=== PATIENT | female | born 1960 | race Caucasian/White ===

== ENCOUNTER 2024-12-06 11:58 | Outpatient (REF) | payer OTHER, SELFPAY ==
[2024-12-06 14:53] LABS: Hematocrit 43.0 % (37.0-47.0); Hemoglobin 14.4 g/dl (12.0-16.0); Mean Corpuscular HGB Conc 33.5 g/dl (31.0-35.0); Mean Corpuscular Hemoglobin 31.0 pg (27.0-33.0); Mean Corpuscular Volume 92.5 fL (80.0-98.0); NRBC Abs Auto 0.000 X10*3/uL (0.0-0.012); NRBC Pct Auto 0.0 /100WBC (0.0-0.2); Platelet Count 260 X10*3/uL (160-400); Red Blood Count 4.65 X10*6/uL (4.20-5.50); White Blood Count 6.6 X10*3/uL (4.8-10.8)
[2024-12-06 15:10] LABS: Hemoglobin A1C 130.1153 umol/L; Total Hemoglobin (HGBA1C) 3746.4492 umol/L
[2024-12-06 15:13] LABS: Alanine Aminotransferase 18 U/L (0-31); Albumin Level 4.2 g/dL (3.5-5.0); Alkaline Phosphatase 57 U/L (39-117); Anion Gap 10 (12-20); Aspartate Amino Transferase 26 U/L (5-31); Blood Urea Nitrogen 11 mg/dL (9-16); Calcium 9.2 mg/dL (8.4-10.2); Carbon Dioxide 30 mmol/L (22-29); Chloride 107 mmol/L (96-108); Cholesterol 163 mg/dL (<200); Estimated Glomerular Filt Rate > 60; HDL Cholesterol 39 mg/dL (>40); Potassium 4.0 mmol/L (3.3-5.1); Sodium 143 mmol/L (135-145); Total Protein 7.0 g/dL (6.5-8.0); Triglycerides 131 mg/dL (<150)
[2024-12-06 15:42] LABS: Folate 9.8 ng/mL (> or = 4.0); Vitamin B12 1270 pg/mL (200-900)
== END 2024-12-06 11:59 | disposition home or self-care (01) ==
LOC: HO.WFDLDS 11:58
PROVIDERS: PCP Nurse Practitioner Family; Visit Provider Nurse Practitioner Family
DX: Z76.89 Persons encountering health services in other specified circumstances (principal); Z00.00 Encounter for general adult medical examination without abnormal findings; Z23 Encounter for immunization; Z13.1 Encounter for screening for diabetes mellitus; J45.20 Mild intermittent asthma, uncomplicated; E78.2 Mixed hyperlipidemia; K59.09 Other constipation; K21.9 Gastro-esophageal reflux disease without esophagitis; F33.1 Major depressive disorder, recurrent, moderate; G89.29 Other chronic pain; Z79.51 Long term (current) use of inhaled steroids; Z79.899 Other long term (current) drug therapy
CPT/HCPCS: 36415; 80053; 80061; 82043; 82306; 82570; 82607; 82746; 83036; 84443; 85027; 90471; 90715; 96127; 96160; 99202

== ENCOUNTER 2024-12-06 11:58 | Outpatient (AMB) | payer MEDICARE, MEDICAID, SELFPAY ==
--- NOTE | 2024-12-06 12:00 | MHC.PC.OV ---
Vital Signs 12/06/24 12:13 Height 5 ft 4 in Weight 176 lb 4 oz BMI 30.2 BP 99/67 Blood Pressure Location Lt brachial Position Sitting Respiration 12 Pulse 58 Pulse Source Pulse Oximeter Temp 97.2 F Temp Source Oral Pulse Oximetry (%) 98 Oxygen Delivery Method Room Air Intake Visit Reasons: Asthma, nerve damage, weak stomach muscle Intake Note: New patient to establish care. Patient is requesting a prescript for bed rail, grab bar and shower chair. Whizzer Operator Required: Yes Whizzer Operator Language: Anesthesiologist Assistant Certified Name: Mani Squires [id number] Allergies amoxicillin Allergy (Severe, Verified 12/06/24 12:07) Rash codeine Allergy (Severe, Verified 12/06/24 12:07) Unknown gabapentin Allergy (Severe, Verified 12/06/24 12:07) Swelling Penicillins Allergy (Severe, Verified 12/06/24 12:07) Hives pregabalin (From Lyrica) Allergy (Severe, Verified 12/06/24 12:07) Confusion Sulfa (Sulfonamide Antibiotics) (Sulfa (Sulfonamides)) Allergy (Mild, Unverified 12/06/24 12:07) RASH Medication List - Last Reviewed 12/06/24 by Layla Vidal MA albuterol sulfate 90 mcg/actuation (Ventolin HFA) 2 puffs inhalation Q4H PRN azithromycin 250 mg PO DAILY docusate sodium 100 mg PO BID PRN escitalopram oxalate 20 mg PO DAILY ezetimibe 10 mg PO DAILY famotidine 40 mg PO BID fexofenadine (Allergy Relief (fexofenadine)) 180 mg PO DAILY fluticasone propion-salmeterol 250-50 mcg/dose (Wixela Inhub) 1 ea inhalation BID fluticasone propionate 50 mcg/actuation 2 sprays intranasal DAILY ketoconazole 2% topical meloxicam 15 mg PO DAILY montelukast 10 mg PO DAILY omeprazole 20 mg PO DAILY polyethylene glycol 3350 (Gavilax) 17 grams PO DAILY Tobacco use date assessed: 12/06/24 Fall risk assessment: 1 Fall in past year Last assessed Fall Risk: 12/06/24 Dental Screening Dental Screen Date: 12/06/24 Did you have a dental visit in the last 12 months?: Yes Did you have a dental problem in the last 6 months where you did not have access to dental care?: No Was dental information given to patient?: Patient has dentist HPI HPI Comments History of Present Illness Details Whizzer Operator: [id number] 64 y/o Syriac speaking F with HLD, MDD, GERD, chronic constipation, Asthma, Chronic pain SurgHx: FHx SocHx: Health Maintenance: See scanned preventative medicine assessment with personalized health plan and screening schedule. Colon: Mammo DEXA PAP Vaccines: Tdap 12/06/24 Flu 11/2024 AAA screen EKG: [place] of Care: GI [facility] Pulm Visual Acuity: Hearing Screening: ACP: Dietary/Nutrition/Exercise Edu provided: Y Here today to [facility]. [facility], no records Had GI procedure September 09, 2024; choking on foods; states she needs protein prescribed. This does not make sense to me clinically; i will need to get records before ordering anything. GERD on pepcid and PPI constipation on miralax and colace allergies - multiple med allergies; takes jennifer for seasonal allergies asthma controlled, would like to see pulm. chronic pain uses meloxicam, would like refill HLD on Zetia - needs refill. MDD on escitalpram, needs refill. Needs DME RX - asking for exercise bands, too. Request sent to nurses; unsure if exercise bands are covered. she may need PT referral Gives me form to complete for SSBCI eligibility; i cannot complete this w/o review of her records which are pending. Due for TDap. Exam Awake alert NAD MMM RRR LS CTAB Mood and affect appropriate Plan Tdap today refer to [facility] pulm Screening labs get records and review; no order for protein until i review records same for form provided; i will keep on hand and complete prn Recommend cont all meds, refills sent. RTO in 8-10 weeks for sAWV sooner as needed. Total time spent caring for the patient today was 45 minutes. This includes time spent before the visit reviewing the chart, time spent during the visit, and time spent after the visit on documentation, reviewing laboratory results, diagnostic imaging, medications, performing a medically necessary evaluation, counseling on diagnoses, care coordination, ordering appropriate tests, ordering appropriate medications, review of tests performed by other providers, reporting test results with the patient, communication with other healthcare providers. [facility] Medical History (Updated 12/06/24 @ 15:12 by Madison Patterson, [facility]) Allergic Anxiety and depression Arthritis Asthma High cholesterol Neuropathy Osteoporosis Psoriasis Sinusitis Spine disorder Surgical History (Updated 12/06/24 @ 13:02 by Layla Vidal MA) H/O cervical spine surgery Family History (Updated 12/06/24 @ 13:06 by Layla Vidal MA) Mother Asthma HTN (hypertension) Diabetes Thyroid disorder Father Asthma HTN (hypertension) Diabetes Mental health disorder Maternal Grandfather Asthma Paternal Grandmother Cancer Paternal Grandfather Cancer Other High cholesterol Social History (Updated 12/06/24 @ 13:01 by Layla Vidal MA) Household Members: Spouse Both parents involved: No Caregiver staying overnight: No Housing: Apartment Are you a primary care transition mgr to a significant other at home: No Do you presently have visiting nurse or other home services: Yes 75 years or older and lives alone: No Alcohol intake: never Patient Tobacco Use Status: Never used Tobacco e-Cigarette/Vaping Use: Never Used Second Hand Smoke Exposure: No Current occupational status: disabled Current occupational exposures/hazards: No Cognitive needs: No Hearing needs: No Vision needs: Yes (wear glasses) Questionnaire PHQ-9 Over the last 2 weeks, how often have you been bothered by any of the following problems? 1. Little interest or pleasure in doing things: not at all 2. Feeling down, depressed, or hopeless: not at all 3. Trouble falling or staying asleep, or sleeping too much: not at all 4. Feeling tired or having little energy: not at all 5. Poor appetite or overeating: not at all 6. Feeling bad about yourself - or that you are a failure or have let yourself or your family down: not at all 7. Trouble concentrating on things, such as reading the newspaper or watching television: not at all 8. Moving or speaking so slowly that other people could have noticed. Or the opposite - being so fidgety or restless that you have been moving around a lot more than usual: not at all 9. Thoughts that you would be better off or of hurting yourself in some way: not at all Total score: 0 Depression Screening Interpretation: Negative Depression Screening Done: Yes 91840 - PHQ-9 Billing: Yes Source: Developed by Drs. Karlos Camejo, Chas Shrestha and colleagues, with an educational jahaira from [employer]. Thrive Questionnaire Date Thrive assessed: 12/06/24 I am a: Patient What is your living situation today?: I have a steady place to live Within the past 12 months, did the food you bought not last and you didn't have the money to get more?: Never true Within the past 12 months, did you worry whether your food would run out before you got money to buy more?: Never true Do you have trouble paying for medicines?: No Do you have trouble getting transportation to medical appointments?: No Do you have trouble paying your heating and electricity bill?: No Do you have trouble taking care of your child, family member or friend?: No Do you have trouble with day-to-day activities such as bathing, preparing meals, shopping, managing finances, etc.?: No Are you currently unemployed and looking for a job?: No Are you interested in more education?: No Please select the resources that you would like help with: None Currently or been in a relationship where the following occur: No concerns reported THRIVE Score: 0 AUDIT C Alcohol Use Questionnaire (AUDIT-C) 1. How often do you have a drink containing alcohol?: Never 3. How often do you have six or more drinks on one occasion?: Never Total Score: 0 Score Reviewed/Action Taken: Yes DAVID-7 AMB Questionnaire DAVID-7 Date DAVID - 7 assessed: 12/06/24 Feeling nervous, anxious, or on edge: 0 = Not at all Not being able to stop or control worryin = Not at all Worrying too much about different things: 0 = Not at all Trouble relaxin = Not at all Being so restless that it is hard to sit still: 0 = Not at all Becoming easily annoyed or irritable: 0 = Not at all Feeling afraid as if something awful might happen: 0 = Not at all Total DAVID-7 score (0-4 normal; 5-9 mild; 10-14 moderate; 15-21 severe): 0 Source: Developed by Drs. Karlos Camejo, Chas Shrestha and colleagues, with an educational jahaira from [employer]. DAVID-7 Assessment Billing DAVID-7 Assessment Tool: DAVID-7 Assessment 69788 ACT Questionnaire In the past 4 weeks, how much of the time did your asthma keep you from getting as much done at work, school or at home?: None of the time During the past 4 weeks, how often have you had shortness of breath?: Not at all During the past 4 weeks, how often did your asthma symptoms wake you up at night or earlier than usual in the morning?: Not at all During the past 4 weeks, how often have you had to use your rescue inhaler or nebulizer medication?: Not at all How would you rate your asthma control during the past 4 weeks?: Completely controlled ACT Interpretation: Negative Score: 25 Physical exam (Primary Care) Vital Signs: Last Vital Signs Temp 97.2 F 12/06/24 12:13 Pulse 58 12/06/24 12:13 Resp 12 12/06/24 12:13 BP 99/67 12/06/24 12:13 Pulse Ox 98 12/06/24 12:13 Oxygen Delivery Method Room Air 12/06/24 12:13 BMI result Body Mass Index 30.2 Tobacco/Smoking Status: Tobacco use Status Tobacco use date assessed 12/06/24 12/06/24 12:12 Patient Tobacco Use Status Never used Tobacco 12/06/24 12:22 e-Cigarette/Vaping Use Never Used 12/06/24 12:22 PHQ-9: PHQ-9 Score PHQ-9: Total score 0 12/06/24 12:22 Depression Screening Interpretation: Negative Thrive Assessment: Date of Thrive Assessment Date Thrive assessed 12/06/24 12/06/24 12:01 Currently or been in a relationship where the following occur: No concerns reported Immunizations Boostrix Tdap 2.5 Lf unit-8 mcg-5 Lf/0.5 mL intramuscular syringe Performing Provider: NANDO Branch Performing Location: [facility] Family Medicine Administered by: Layla Vidal MA on 12/06/24 12:40 Dose Route Admin Location Dispensed Lot Number Expiration Date [facility] Turret Punch Operator 0.5 mL IM Right Deltoid 0.5 mL [id number] 01/16/27 06678-629-45 [employer] Total Dispensed Waste 0.5 mL 0 % VIS Given Date VIS Provided VIS Publication Date 12/06/24 Single Vaccine 20 Eligibility Eligibility Date Funding Source Not [facility] Eligible 12/06/24 Private Coding Level of Care Code New Pt Level 4 (42866) Complex EM visit Add On G2211 Diagnoses Encounter to establish care with new provider Z76.89 Laboratory exam ordered as part of routine general medical examination Z00.00 Mild intermittent asthma in adult without complication J45.20 Need for Tdap vaccination Z23 Mixed hyperlipidemia E78.2 Hyperlipidemia type: mixed hyperlipidemia Chronic constipation K59.09 Gastroesophageal reflux disease without esophagitis K21.9 Esophagitis presence: without esophagitis Moderate episode of recurrent major depressive disorder F33.1 Major depression episode severity: moderate Other chronic pain G89.29 Chronic pain type: other chronic pain Additional Codes Asthma Control Questionnaire - ACT Interpretation: Negative ([id number]) DAVID-7 Assessment Billing - DAVID-7 Assessment Tool: DAVID-7 Assessment 76772 ([id number]) PHQ-9 - 18955 - PHQ-9 Billing: Yes ([id number]) Assessment & Plan Assessment & Plan (1) Encounter to establish care with new provider: Code(s): Z76.89 - Persons encountering health services in other specified circumstances (2) Laboratory exam ordered as part of routine general medical examination: Code(s): Z00.00 - Encounter for general adult medical examination without abnormal findings Category: Medical (3) Mild intermittent asthma in adult without complication: Code(s): J45.20 - Mild intermittent asthma, uncomplicated Category: Medical (4) Need for Tdap vaccination: Code(s): Z23 - Encounter for immunization Category: Medical (5) HLD (hyperlipidemia): Code(s): E78.5 - Hyperlipidemia, unspecified Category: Medical Qualifiers: Hyperlipidemia type: mixed hyperlipidemia Qualified Code(s): E78.2 - Mixed hyperlipidemia (6) Chronic constipation: Code(s): K59.09 - Other constipation Category: Medical (7) GERD (gastroesophageal reflux disease): Code(s): K21.9 - Gastro-esophageal reflux disease without esophagitis Category: Medical Qualifiers: Esophagitis presence: without esophagitis Qualified Code(s): K21.9 - Gastro-esophageal reflux disease without esophagitis (8) MDD (major depressive disorder), recurrent episode: Code(s): F33.9 - Major depressive disorder, recurrent, unspecified Category: Medical Qualifiers: Major depression episode severity: moderate Qualified Code(s): F33.1 - Major depressive disorder, recurrent, moderate (9) Chronic pain: Code(s): G89.29 - Other chronic pain Category: Medical Qualifiers: Chronic pain type: other chronic pain Qualified Code(s): G89.29 - Other chronic pain Plan . Orders: Orders Hemoglobin A1c Today Z00.00 - Encounter for general adult medical examination without abnormal findings Lipid Panel Today Z00.00 - Encounter for general adult medical examination without abnormal findings Microalbumin, Random (w Creat) Today Z00.00 - Encounter for general adult medical examination without abnormal findings TDaP Immunization Today Z23 - Encounter for immunization Complete Blood Count no Diff Today Z00.00 - Encounter for general adult medical examination without abnormal findings Comprehensive Met. Panel Today Z00.00 - Encounter for general adult medical examination without abnormal findings TSH reflex Free T4 Today Z00.00 - Encounter for general adult medical examination without abnormal findings Vitamin B12 and Folate Today Z00.00 - Encounter for general adult medical examination without abnormal findings Vitamin D 25-OH Total Today Z00.00 - Encounter for general adult medical examination without abnormal findings Referrals Pulmonology Referral J45.20 - Mild intermittent asthma, uncomplicated Medications: New escitalopram oxalate 20 mg PO DAILY 90 tabs 2RF ezetimibe 10 mg PO DAILY 90 tabs 2RF meloxicam 15 mg PO DAILY 90 tabs 2RF Patient Instructions: Walk-In Care (Urgent Care): We Make it Easy Walk-in for urgent medical issues such as: ? Seasonal Allergies ? Insect Bites ? Cough ? Diarrhea ? Acute Asthma Attacks ? Back, Knee or Joint Pain ? Ear Infection ? Fever without a Rash ? Headaches ? Nausea ? [place] Eye, Rash or Skin Irritation ? Sore Throat ? Sports Physicals ? Vomiting Most insurances are accepted. Patients do not need to be part of the [facility] to seek care at the walk-in clinic. Locations [address], [place] Open Tuesday through Tuesday 8am-5pm *Hours may vary due to staffing availability. To confirm Walk-In Care hours please call. Danielle Veronika Sierra, [place] [address] ? [phone] [facility] Walk-In Care in [place] provides services to ages 18 and over. Open Tuesday-Tuesday: 7 a.m. to 5 p.m. and Tuesday: 9 a.m. to 3 p.m.* *Hours may vary due to staffing availability. To confirm Walk-In Care hours in [place], please call [phone]. [address] [place] [address] ? [phone] [facility] Walk-In Care in [place] provides services to ages 12 and over. Open Tuesday-Tuesday: 8 a.m. to 5 p.m. Hours may vary due to staffing availability. To confirm Walk-In Care hours in [place], please call [phone]. LABORATORY SERVICES: [facility] Lab ? Primary Location [address] [place] [address] Tuesday through Tuesday 6:00 AM ? 5:00 PM Tuesday 7:00 AM ? 11:00 AM* [phone] The [facility] Lab is centrally located near the front entrance of the [facility] for easy outpatient access. Convenient parking is provided for outpatients. *Hours may vary due to staffing availability. To confirm Laboratory hours for any location, please call [phone]. Offsite Location For your convenience, we offer offsite laboratory draw stations at the following locations: [address] [place] [address] ? [address], [address] Tuesday through Tuesday 7:30 AM ? 1:00 PM* [phone] *Hours may vary due to staffing availability. To confirm Laboratory hours for any location, please call [phone]. [place] ? [address] Tuesday through Tuesday 6:00 AM ? 3:30 PM* Tuesday 6:30 AM ? 3 PM* [phone] *Hours may vary due to staffing availability. To confirm Laboratory hours for any location, please call [phone] [place] [address] Tuesday through Tuesday 7:30 AM ? 4:00 PM* [phone] *Hours may vary due to staffing availability. To confirm Laboratory hours for any location, please call [phone] [place] [address] Tuesday through 9:00 AM ? 4:00 PM* *Hours may vary due to staffing availability. To confirm Laboratory hours for any location, please call [phone]. Appointments are not necessary. Walk-ins are welcome. Like all the departments throughout the [facility], our Lab undergoes frequent reviews to ensure the quality and accuracy of test results, and our staff takes special pride in its status as a nationally accredited facility. Patient Portal: [facility] ONE PATIENT. ONE RECORD. BETTER CARE. [facility] has a fully integrated, cutting-edge mobile electronic health information system that has revolutionized the way we care for our patients and manage our organization. This system improves communication and coordination enabling us to provide safe, higher-quality care, and an overall positive experience for staff and patients. Our first priority, as always, is to deliver the highest quality care possible. The system is running in the background supporting that priority. This portal is for all [facility] services and practices. If you are experiencing any technical difficulties with enrolling or logging into the Patient Portal please complete the [facility] Patient Portal Technical Support Form. [facility] now offers a new secure on-line interactive tool for patients to review their health information ? ?Patient Portal. This interactive web portal will enable patients and their families to take an active role in their care by providing easy, secure access to their health information via the internet. The Patient Portal provides patients with instant access to their health information, including laboratory results, medications, allergies, demographic information, visit history, and more. In addition to managing their own care, parents and health care proxies with authorized consent will appreciate the ability to access the records of those individuals for whom they provide care. Please note: if you wish to gain access (Proxy) to another patient?s portal, you will be required to come to the Medical Records Department in person at [facility]. Both the patient giving proxy access and the proxy will need to provide photo identification and complete the appropriate authorization. The Patient Portal also allows track their appointments online. The [facility] Patient Portal also saves patients time by allowing them to submit updates to their demographic and contact information prior to their visits. Portal email notifications will also alert patients to any new activity on their portal, such as test results and new appointments. In order to initially enroll in the [facility] Patient Portal, you will need to enter some required information including the following: your [facility] Medical Record number your personal home email address name date of Please note: In order to enroll in the [facility] Patient Portal, we need to have your email address on file in your electronic medical record. ?The email address needs to be specific for one person (yourself) in order for your Portal enrollment to be successful. ?You can update your email address in person with our Registration staff when you are registering for a hospital visit. ?Otherwise, you will need to come to the Health Information Management (Medical Records) Department at [facility]. ?We are open from Tuesday ? Tuesday from 7:30 a.m. ? 4:30 p.m. ?You will be required to present a photo id. Once you have successfully enrolled in the Patient Portal, you will receive a one-time user id and password for the Portal, sent to your email address. ?This will allow you to log into the Patient Portal within 99 hrs and reset your own logon id and password, and define personal security questions. ?Once your permanent login and password have been set, you can log into the [facility] Patient Portal at any time via the blue button above or from the Portal Logon button on any page of the [facility] website. [facility] and [facility] encourage all of our patients to enroll in Patient Portal as it presents a valuable opportunity for patients and their families to actively participate in their care and stay healthy Welcome to [facility]. ?We look forward to working with you.
[2024-12-06 12:13] VITALS: BP 99/67; PULSE 58; RESP 12; TEMP 36.2; O2SAT 98; BMI 30.2
== END 2024-12-06 12:40 | disposition home or self-care (01) ==
PROVIDERS: PCP Nurse Practitioner Family; Visit Provider Nurse Practitioner Family
DX: J45.20 Mild intermittent asthma, uncomplicated (principal); F33.1 Major depressive disorder, recurrent, moderate; E78.2 Mixed hyperlipidemia; K59.09 Other constipation; Z23 Encounter for immunization; K21.9 Gastro-esophageal reflux disease without esophagitis; G89.29 Other chronic pain

== ENCOUNTER 2025-01-29 09:24 | Outpatient (AMB) | payer OTHER, SELFPAY ==
--- NOTE | 2025-01-29 10:15 | MHC.OFFVIS ---
Vital Signs 01/29/25 10:16 Height 5 ft 4 in Weight 177 lb 4 oz BMI 30.4 BP 110/82 Blood Pressure Location Rt brachial Position Sitting Pulse 68 Pulse Source Pulse Oximeter Pulse Oximetry (%) 98 Oxygen Delivery Method Room Air Intake Visit Reasons: Asthma Formal Waiter/Waitress Required: Yes Formal Waiter/Waitress Language: Shorts Sifter Services: Formal Waiter/Waitress Present Formal Waiter/Waitress Name: Nanda Chiu LM Allergies amoxicillin Allergy (Severe, Verified 01/29/25 10:19) Rash codeine Allergy (Severe, Verified 01/29/25 10:19) Unknown gabapentin Allergy (Severe, Verified 01/29/25 10:19) Swelling Penicillins Allergy (Severe, Verified 01/29/25 10:19) Hives pregabalin (From Lyrica) Allergy (Severe, Verified 01/29/25 10:19) Confusion Sulfa (Sulfonamide Antibiotics) (Sulfa (Sulfonamides)) Allergy (Mild, Unverified 01/29/25 10:19) RASH HPI HPI Asthma: Details: Aziza is a pleasant 64 year old female, never smoker, with underlying asthma, GERD, HLD and DAVID. She was referred by PCP for pulmonary evaluation. She was diagnosed with asthma at the age of 30 and has never required hospitalization or intubation for her condition. She reports that laughing excessively can trigger coughing fits, and exposure to animals such as dogs, cats, or birds exacerbates her symptoms. She has been using Wixela and albuterol for asthma management, with increased symptoms noted three months ago after visiting her daughter who owns a dog. Unfortunately patient was under the impression she could discontinue Wixela once her symptoms were controlled and has since stopped 2-3 months ago. She has been using Albuterol MDI every other day for cough, wheezing and dyspnea. She reports prior h/o of what sounds like ABPA, treated with medication with improvements in overall control. Reviewed records with no documentation of this. Most recent CXR 2023 which was unremarkable and no recent allergy testing. The patient has a history of exposure to cleaning chemicals, including Clorox, which she believes may trigger her asthma. She has recently switched to using vinegar as a cleaning agent to mitigate this issue. She reports mother with h/o of idiopathic pulmonary fibrosis as well as multiple first degree family members with asthma. [facility] Medical History (Updated 01/29/25 @ 10:39 by Brigida Luong NP) Psoriasis Anxiety and depression Neuropathy Spine disorder Osteoporosis Arthritis High cholesterol Allergic Sinusitis Asthma Surgical History (Updated 12/19/24 @ 13:42 [facility] History of total abdominal hysterectomy H/O right knee surgery History of cholecystectomy History of tubal ligation H/O cervical spine surgery Family History (Updated 12/06/24 @ 13:06 by Layla Vidal MA) Mother Asthma HTN (hypertension) Diabetes Thyroid disorder Father Asthma HTN (hypertension) Diabetes Mental health disorder Maternal Grandfather Asthma Paternal Grandmother Cancer Paternal Grandfather Cancer Other High cholesterol Social History Household Members: Spouse Both parents involved: No Caregiver staying overnight: No Housing: Apartment Are you a primary point of care specialist to a significant other at home: No Do you presently have visiting nurse or other home services: Yes 75 years or older and lives alone: No Alcohol intake: never Patient Tobacco Use Status: Never used Tobacco e-Cigarette/Vaping Use: Never Used Second Hand Smoke Exposure: No Current occupational status: disabled Current occupational exposures/hazards: No Cognitive needs: No Hearing needs: No Vision needs: Yes (wear glasses) Review of Systems Const Denies chills, Denies excessive sweating, Denies fever(s), Denies headache(s) and Denies night sweats Eyes Denies dry eyes, Denies irritation and Denies itchy eyes ENT Reports Normal hearing present, Denies headache(s), Denies nasal congestion, Denies nasal discharge, Denies post nasal drip and Denies sore throat Card Denies chest pain, Denies chest pain at rest, Denies chest pain with activity, Denies claudication, Denies leg edema, Denies orthopnea and Denies paroxysmal nocturnal dyspnea Resp Denies chest congestion, Denies excessive phlegm production, Denies pain on inspiration, Denies pain with cough and Denies stridor Musc Denies myalgias Neuro Reports Normal hearing present and Denies headache(s) Endo Denies excessive sweating Sidney/Lymph Denies lymphadenopathy Aller/Immun Denies itchy eyes and Denies seasonal rhinorrhea Physical Exam Vital Signs: Last Vital Signs Pulse 68 01/29/25 10:16 BP 110/82 01/29/25 10:16 Pulse Ox 98 01/29/25 10:16 Oxygen Delivery Method Room Air 01/29/25 10:16 BMI result Body Mass Index 30.4 Const General: cooperative, healthy appearing, comfortable, no acute distress, well developed and alert Orientation/consciousness: patient oriented x3 Limitations: no limitations HEENT Head: Yes normal to inspection, Yes normocephalic and Yes atraumatic Ears: hearing grossly normal bilaterally and external ears normal Eyes General: appearance normal, both eyes and all related structures Eyelids: Yes eyelids normal Sclerae: sclerae normal EOM: EOMs intact bilaterally Neck Neck: Yes normal visual inspection and Yes no lymphadenopathy Lymphatic: no lymphadenopathy noted Chest Chest palpation & inspection: normal inspection of the chest Resp Effort & Inspection: normal respiratory effort, able to speak in complete sentences, no audible wheezes, no cough, no stridor, not tachypneic, no tripod positioning and no use of accessory muscles Auscultation: diminished lung sounds Cardio Jugular venous distension: no JVD Rate: regular rate Rhythm: regular rhythm Skin Other: warm, dry General skin exam: no rashes or lesions noted Neuro General: patient oriented x3 Cranial nerves: Yes Normal hearing present Cognition (Neuro): normal cognition Gait exam (Neuro): Normal gait present Extrem General: Yes normal to inspection, Yes capillary refill normal, Yes no clubbing, cyanosis or edema and Yes no pedal edema Psych Appearance: grossly normal and well kempt Speech and movement: Normal speech and movement present and Clear speech present Affect: normal affect Attitude: cooperative Thought process: Normal thought process present Thought content: Normal thought content present Insight: Good insight present (Psych) Judgement: Good judgement present (Psych) Assessment & Plan Assessment & Plan (1) Asthma: Code(s): J45.909 - Unspecified asthma, uncomplicated Category: Medical (2) Environmental allergies: Code(s): Z91.09 - Other allergy status, other than to drugs and biological substances Category: Medical Plan The patient will continue using Wixela daily, with one inhalation in the morning and one at night, to manage asthma symptoms. Albuterol will be used as needed for acute symptom relief. Allergy testing is recommended to identify potential triggers, and a pulmonary function test will be conducted to assess lung function. A chest x-ray will be performed to evaluate current pulmonary status. She is aware to call if symptoms do not improve. All questions were answered and patient is in agreement of plan. Will follow up in 8-10 weeks or sooner if needed. Orders: Orders Immunoglobulin E Today Z91.09 - Other allergy status, other than to drugs and biological substances XR chest 2V Today J45.909 - Unspecified asthma, uncomplicated Resp Allergy Profile Region I Today Z. - Other allergy status, other than to drugs and biological substances Complete Blood Count Auto Diff Today Z. - Other allergy status, other than to drugs and biological substances PFT pulmonary function test Today J45.909 - Unspecified asthma, uncomplicated Medications: New albuterol sulfate 90 mcg/actuation (Ventolin HFA) 2 puffs inhalation Q4H PRN 1 ea 3RF wheezing fluticasone propion-salmeterol 250-50 mcg/dose (Wixela Inhub) 1 ea inhalation BID 60 ea 3RF Coding Level of Care Code New Pt Level 4 (41195) Diagnoses Asthma J45.909 Environmental allergies .
[2025-01-29 10:16] VITALS: BP 110/82; PULSE 68; O2SAT 98; BMI 30.4
== END 2025-01-29 10:48 | disposition home or self-care (01) ==
LOC: HO.HPSW 09:24
PROVIDERS: PCP Nurse Practitioner Family; Referring Provider Nurse Practitioner Family; Visit Provider Nurse Practitioner Family
DX: J45.909 Unspecified asthma, uncomplicated (principal); Z91.09 Other allergy status, other than to drugs and biological substances
CPT/HCPCS: 99204

== ENCOUNTER 2025-01-29 09:24 | Outpatient (REF) | payer OTHER, SELFPAY ==
[2025-01-29 14:34] LABS: MANUAL DIFF FLAG NO
[2025-01-29 14:48] LABS: Hematocrit 43.3 % (37.0-47.0); Hemoglobin 14.3 g/dl (12.0-16.0); Imm Gran Abs Auto 0.01 X10*3/uL (0.00-0.03); Imm Gran Pct Auto 0.2 % (0.0-0.4); Lymphocytes Absolute Auto 2.9 X10*3/uL (1.2-4.9); Mean Corpuscular HGB Conc 33.0 g/dl (31.0-35.0); Mean Corpuscular Hemoglobin 31.4 pg (27.0-33.0); Mean Corpuscular Volume 95.2 fL (80.0-98.0); NRBC Abs Auto 0.000 X10*3/uL (0.0-0.012); NRBC Pct Auto 0.0 /100WBC (0.0-0.2); Platelet Count 238 X10*3/uL (160-400); Red Blood Count 4.55 X10*6/uL (4.20-5.50); White Blood Count 6.2 X10*3/uL (4.8-10.8)
[2025-01-30 14:24] LABS: Class Alternaria alternata 0; Class Aspergillus fumigatus 0; Class Bermuda Grass 0; Class Birch 0; Class Cat Dander 0; Class Cladosporium herbarum 0; Class Cockroach 0; Class Common Ragweed 0; Class Cottonwood 0; Class Derm. pterony 0; Class Dermatophagoides farinae 0; Class Dog Dander 0; Class Elm 0; Class Maple Box Elder 0; Class Mountain Cedar 0; Class Mouse Urine Protein 0; Class Mugwort 0; Class Oak 0; Class Penicillium crysogenum 0; Class Rough Pigweed 0; Class Sheep Sorrel 0; Class Sycamore 0; Class Timothy Grass 0; Class Walnut Tree 0; Class White Ash 0; Class White Mulberry 0; D002 - IgE D farinae <0.10 kU/L; E001 - IgE Cat Dander <0.10 kU/L; E005 - IgE Dog Dander <0.10 kU/L; G006 - IgE Timothy Grass <0.10 kU/L; I006-IgE Cockroach, German <0.10 kU/L; M002 - IgE Cladosporium herbar <0.10 kU/L; M003 - IgE Aspergillus fumigat <0.10 kU/L; M006 - IgE Alternaria alternat <0.10 kU/L; T001 IgE Maple/Box Elder <0.10 kU/L; T006 - IgE Cedar, Mountain <0.10 kU/L; T007 - IgE Oak, White <0.10 kU/L; T008 IgE Elm, American <0.10 kU/L; T010 - IgE Walnut <0.10 kU/L; T011 - IgE Maple Leaf Sycamore <0.10 kU/L; T014 - IgE Cottonwood <0.10 kU/L; T015 - IgE Ash, White <0.10 kU/L; T070 - IgE White Mulberry <0.10 kU/L; W001 - IgE Ragweed, Short <0.10 kU/L; W006 - IgE Mugwort <0.10 kU/L; W014 IgE Pigweed, Common <0.10 kU/L; W018 IgE Sheep Sorrel <0.10 kU/L
== END 2025-01-29 09:25 | disposition home or self-care (01) ==
LOC: HO.WFDLDS 09:24
PROVIDERS: PCP Nurse Practitioner Family; Referring Provider Nurse Practitioner Family; Visit Provider Nurse Practitioner Family
DX: J45.909 Unspecified asthma, uncomplicated (principal); Z91.09 Other allergy status, other than to drugs and biological substances; Z79.899 Other long term (current) drug therapy
CPT/HCPCS: 36415; 82785; 85025; 86003; 99202

== ENCOUNTER 2025-03-05 09:47 | Outpatient (REF) | payer OTHER, SELFPAY ==
[2025-03-05 13:44] LABS: Appearance Urine Clear; Glucose Urine UA Negative (Negative); PH 6.5 (5.0-9.0); Specific Gravity - Urine 1.010 (1.005-1.025); UMIC TRIGGER UACC YES
[2025-03-05 13:50] LABS: MANUAL DIFF FLAG NO
[2025-03-05 13:57] LABS: Hematocrit 46.2 % (37.0-47.0); Hemoglobin 15.3 g/dl (12.0-16.0); Imm Gran Abs Auto 0.02 X10*3/uL (0.00-0.03); Imm Gran Pct Auto 0.2 % (0.0-0.4); Lymphocytes Absolute Auto 3.3 X10*3/uL (1.2-4.9); Mean Corpuscular HGB Conc 33.1 g/dl (31.0-35.0); Mean Corpuscular Hemoglobin 31.4 pg (27.0-33.0); Mean Corpuscular Volume 94.7 fL (80.0-98.0); NRBC Abs Auto 0.000 X10*3/uL (0.0-0.012); NRBC Pct Auto 0.0 /100WBC (0.0-0.2); Platelet Count 270 X10*3/uL (160-400); Red Blood Count 4.88 X10*6/uL (4.20-5.50); White Blood Count 8.3 X10*3/uL (4.8-10.8)
[2025-03-05 14:09] LABS: UACC Culture Trigger YES
[2025-03-05 14:20] LABS: Alanine Aminotransferase 17 U/L (0-31); Albumin Level 4.5 g/dL (3.5-5.0); Alkaline Phosphatase 65 U/L (39-117); Anion Gap 11 (12-20); Aspartate Amino Transferase 27 U/L (5-31); Blood Urea Nitrogen 9 mg/dL (9-16); Calcium 9.8 mg/dL (8.4-10.2); Carbon Dioxide 29 mmol/L (22-29); Chloride 108 mmol/L (96-108); Cholesterol 174 mg/dL (<200); Estimated Glomerular Filt Rate > 60; HDL Cholesterol 43 mg/dL (>40); Magnesium 1.9 mg/dL (1.6-2.6); Potassium 4.2 mmol/L (3.3-5.1); Sodium 144 mmol/L (135-145); Total Protein 7.4 g/dL (6.5-8.0); Triglycerides 140 mg/dL (<150)
[2025-03-05 14:52] LABS: Folate 8.6 ng/mL (> or = 4.0); Vitamin B12 854 pg/mL (200-900)
[2025-03-06 03:40] LABS: Syphilis Screen Nonreactive (Nonreactive)
[2025-03-06 03:57] LABS: HBS Num1 0.00 mIU/mL (0-7.99); HBsAGNum1 0.38 S/CO (0.00-0.99); HIV Num 1 0.07 S/CO (0.00-0.99); Hepatitis B Surface Antigen Negative (Negative); ~HepC Num1 0.10 S/CO (0.00-0.79); ~Hepatitis B Surface Antibody NONREACTIVE (Nonreactive); ~Hepatitis C Antibody Nonreactive (Nonreactive)
[2025-03-09 13:13] LABS: Vitamin D 25-OH, D2 7 ng/mL; Vitamin D 25-OH, D3 36 ng/mL; Vitamin D 25-OH, Total 43 ng/mL (30-100)
== END 2025-03-05 09:48 | disposition home or self-care (01) ==
LOC: HO.HKASLDS 09:47
PROVIDERS: PCP Student in an Organized Health Care Education/Training Program; Visit Provider Student in an Organized Health Care Education/Training Program
DX: E66.811 Obesity, class 1 (principal); F33.1 Major depressive disorder, recurrent, moderate; M79.601 Pain in right arm; M54.12 Radiculopathy, cervical region; G47.00 Insomnia, unspecified; M81.0 Age-related osteoporosis without current pathological fracture; E78.2 Mixed hyperlipidemia; K21.9 Gastro-esophageal reflux disease without esophagitis; K44.9 Diaphragmatic hernia without obstruction or gangrene; M17.0 Bilateral primary osteoarthritis of knee; G89.29 Other chronic pain; J45.40 Moderate persistent asthma, uncomplicated; R06.83 Snoring; K30 Functional dyspepsia; L21.9 Seborrheic dermatitis, unspecified; M85.80 Other specified disorders of bone density and structure, unspecified site; L30.4 Erythema intertrigo; K59.09 Other constipation; Z91.09 Other allergy status, other than to drugs and biological substances; Z68.30 Body mass index [BMI] 30.0-30.9, adult; Z13.1 Encounter for screening for diabetes mellitus
CPT/HCPCS: 36415; 80053; 80061; 81001; 82306; 82607; 82746; 83036; 83735; 84443; 85025; 85652; 86141; 86706; 86780; 86803; 87086; 87340; 87389; 96127; 99202

== ENCOUNTER 2025-03-05 09:47 | Outpatient (AMB) | payer OTHER, SELFPAY ==
--- NOTE | 2025-03-05 09:50 | MHC.PC.OV ---
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 Model Maker Firearms Required: No Model Maker Firearms Name: Doctor speaks pashto Accompanied by: Self / Same As Patient Allergies amoxicillin Allergy (Severe, Verified 03/05/25 09:56) Rash codeine Allergy (Severe, Verified 03/05/25 09:56) Unknown gabapentin Allergy (Severe, Verified 03/05/25 09:56) Swelling Penicillins Allergy (Severe, Verified 03/05/25 09:56) Hives pregabalin (From Lyrica) Allergy (Severe, Verified 03/05/25 09:56) Confusion Sulfa (Sulfonamide Antibiotics) (Sulfa (Sulfonamides)) Allergy (Mild, Unverified 03/05/25 09:56) RASH Medication List - Last Reconciled 03/05/25 by Samir Jefferson MD albuterol sulfate 90 mcg/actuation (Ventolin HFA) 2 puffs inhalation Q4H PRN azithromycin mg PO baclofen 10 mg PO DAILY [Bed rails As directed] docusate sodium 100 mg PO BID PRN escitalopram oxalate 20 mg PO DAILY ezetimibe 10 mg PO DAILY famotidine 40 mg PO BID fexofenadine (Allergy Relief (fexofenadine)) 180 mg PO DAILY fluoride (sodium) 1.1% (PreviDent 5000 Dry Mouth) 1 appl dental DAILY fluticasone propion-salmeterol 250-50 mcg/dose (Wixela Inhub) 1 ea inhalation BID fluticasone propionate 50 mcg/actuation 2 sprays intranasal DAILY [grab bars As directed] ketoconazole 2% 1 appl topical 3XW meloxicam 15 mg PO DAILY montelukast 10 mg PO DAILY nystatin 1 appl topical BID polyethylene glycol 3350 (Gavilax) 17 grams PO DAILY [shower chair As directed] triamcinolone acetonide 0.025% 1 appl topical BID Tobacco use date assessed: 03/05/25 Fall risk assessment: 1 Fall in past year Last assessed Fall Risk: 03/05/25 Dental Screening Dental Screen Date: 03/05/25 Did you have a dental visit in the last 12 months?: Yes Did you have a dental problem in the last 6 months where you did not have access to dental care?: No Was dental information given to patient?: Patient has dentist HPI HPI Comments History of Present Illness Details History of Present Illness The patient is a 64 year old female presenting for evaluation of right arm pain and management of multiple chronic conditions. Right arm pain: The patient reports the onset of severe right arm pain since Tuesday, which involves the entire arm. She has difficulty lifting the arm and cannot apply much force with it. She recently started taking her previously prescribed baclofen, which has improved the pain and allowed for slightly more movement. Asthma and Allergies: The patient has a history of asthma and chronic allergies, for which she uses a nebulizer and a nasal spray. 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 She recounts a recent episode where cleaning the oven caused an asthma attack that nearly led to asphyxiation. Osteoarthritis and Cervical Radiculopathy: The patient suffers from osteoarthritis, notably in her knees. She also has arthritis in her cervical spine, with pinched nerves at the C5 and C6 levels, causing burning neuropathic pain. A neurosurgeon has previously determined that she is not a candidate for surgery on her cervical spine. She reports being accustomed to the chronic pain. Gastrointestinal Issues: The patient has a history of gastritis and delayed gastric emptying, where food remains in her stomach and accumulates. This causes a sensation of food getting stuck, and she often needs to drink water while eating. A previous chief inspector recommended eating small portions and avoiding red meat. She reports an episode where she choked on gastric reflux in her sleep. She also suffers from chronic constipation her whole life and previously used docusate and Miralax, the latter of which she dislikes for being too strong. Her colonoscopy last year revealed diverticulosis and polyps, which were removed. She also has internal hemorrhoids. Major Depressive Disorder: The patient takes citalopram for depression, which she finds effective. She notes that she gained weight on the medication, does not like this side effect due to her knee pain, and is interested in changing it. She had previously stopped the medication for a full year and lost weight but restarted it due to family stress involving her daughter and grandchildren. Dermatological Issues: The patient reports scalp psoriasis, which causes significant itching and bleeding when scratched; she finds ketoconazole 2% shampoo very helpful, using it three times a week. She also has a persistent issue with skin irritation in the fold of her abdomen overlying a surgical scar from her hysterectomy. This area becomes sweaty, especially in the summer, leading to intense itching and discomfort, which limits her outdoor activities. She sometimes scratches the area, causing skin breakdown. Insomnia: The patient reports sleeping poorly due to insomnia, which a previous doctor attributed to stress. Her has told her that she snores. She has never had a sleep study. Osteoporosis: The patient has a history of bone density issues, initially diagnosed as osteopenia, which she was later told was progressing to osteoporosis on her last DEXA scan. Surgical History: - Hysterectomy due to fibroids - Tubal ligation at age 30 Medications: - Albuterol via nebulizer for asthma - Baclofen for muscle relaxation/pain - escitalopram for depression - Docusate for constipation (has run out) - Ezetimibe 10 mg at night for high cholesterol - Famotidine 40 mg for gastritis - Ketoconazole 2% shampoo, used three times a week for scalp psoriasis - Triamcinolone cream for skin rash - Montelukast for allergies - Meloxicam (listed but not discussed) - Does not take omeprazole - Magnesium glycinate for sleep and muscle relaxation - Melatonin for sleep Social History: - Family Status: Notes recent stress related to her daughter and grandchildren, which prompted her to restart her depression medication. - Functional Status: Avoids going outside during the summer due to discomfort and itching from a skin condition in an abdominal fold. - Sleep: Reports poor sleep, insomnia, and snoring. - Nutrition/Weight: Reports recent weight gain, which she attributes to her medication for depression and wants to avoid due to her knee arthritis. Family History: - No family history was discussed during the visit. Diagnostic Results: - Labs: Previous labs showed slightly elevated white blood cells. - Procedures: Colonoscopy last year revealed diverticulosis and polyps, which were removed. - Procedures: Past GI study revealed slow digestion. - Imaging: Last DEXA scan showed a progression from osteopenia to osteoporosis. Past Medical History - Asthma - Chronic allergies - Osteoarthritis, affecting knees and cervical spine - Cervical radiculopathy, C5-C6 - Gastritis - Gastroparesis - Major Depressive Disorder - Chronic constipation - Hyperlipidemia - Scalp psoriasis - Osteoporosis, with prior osteopenia - Diverticulosis - History of colon polyps - Internal hemorrhoids - History of fibroids Health Maintenance - Mammogram: Patient is due for her annual mammogram. - Colonoscopy: Last performed the previous year, with removal of polyps. - Pap smear: Not applicable due to history of hysterectomy. - Bone Density Scan: Previously had a DEXA scan which showed progression from osteopenia to osteoporosis. - Lab screening: Comprehensive labs ordered including CBC, CMP, magnesium, HbA1c, lipid panel, thyroid panel, B12, vitamin D, folate, urinalysis, and screening for hepatitis B, C, HIV, and syphilis. [facility] Medical History Psoriasis Anxiety and depression Neuropathy Spine disorder Osteoporosis Arthritis High cholesterol Allergic Sinusitis Asthma Surgical History History of total abdominal hysterectomy H/O right knee surgery History of cholecystectomy History of tubal ligation H/O cervical spine surgery Family History Mother Asthma HTN (hypertension) Diabetes Thyroid disorder Father Asthma HTN (hypertension) Diabetes Mental health disorder Maternal Grandfather Asthma Paternal Grandmother Cancer Paternal Grandfather Cancer Other High cholesterol Social History (Updated 03/05/25 @ 10:03 by Chuy Hardy CMA) Household Members: Spouse Both parents involved: No Caregiver staying overnight: No Housing: Apartment Are you a primary intensive care unit nurse to a significant other at home: No Do you presently have visiting nurse or other home services: Yes 75 years or older and lives alone: No Alcohol intake: never Patient Tobacco Use Status: Never used Tobacco e-Cigarette/Vaping Use: Never Used Second Hand Smoke Exposure: No Current occupational status: disabled Current occupational exposures/hazards: No Cognitive needs: No Hearing needs: No Vision needs: Yes (wear glasses) Questionnaire PHQ-9 Over the last 2 weeks, how often have you been bothered by any of the following problems? 1. Little interest or pleasure in doing things: not at all 2. Feeling down, depressed, or hopeless: not at all 3. Trouble falling or staying asleep, or sleeping too much: not at all 4. Feeling tired or having little energy: not at all 5. Poor appetite or overeating: not at all 6. Feeling bad about yourself - or that you are a failure or have let yourself or your family down: not at all 7. Trouble concentrating on things, such as reading the newspaper or watching television: not at all 8. Moving or speaking so slowly that other people could have noticed. Or the opposite - being so fidgety or restless that you have been moving around a lot more than usual: not at all 9. Thoughts that you would be better off or of hurting yourself in some way: not at all Total score: 0 Depression Screening Interpretation: Negative Depression Screening Done: Yes 86518 - PHQ-9 Billing: Yes Source: Developed by Drs. Karlos Camejo, Bette Dejesus, Chas Plummer and colleagues, with an educational jahaira from [employer]. Thrive Questionnaire Date Thrive assessed: 03/05/25 I am a: Patient What is your living situation today?: I have a steady place to live Within the past 12 months, did the food you bought not last and you didn't have the money to get more?: Never true Within the past 12 months, did you worry whether your food would run out before you got money to buy more?: Never true Do you have trouble paying for medicines?: No Do you have trouble getting transportation to medical appointments?: No Do you have trouble paying your heating and electricity bill?: No Do you have trouble taking care of your child, family member or friend?: No Do you have trouble with day-to-day activities such as bathing, preparing meals, shopping, managing finances, etc.?: No Are you currently unemployed and looking for a job?: No Are you interested in more education?: No Please select the resources that you would like help with: None Currently or been in a relationship where the following occur: No concerns reported THRIVE Score: 0 AUDIT C Alcohol Use Questionnaire (AUDIT-C) 1. How often do you have a drink containing alcohol?: Never 3. How often do you have six or more drinks on one occasion?: Never Total Score: 0 Score Reviewed/Action Taken: Yes DAVID-7 AMB Questionnaire DAVID-7 Date DAVID - 7 assessed: 03/05/25 Feeling nervous, anxious, or on edge: 0 = Not at all Not being able to stop or control worryin = Not at all Worrying too much about different things: 0 = Not at all Trouble relaxin = Not at all Being so restless that it is hard to sit still: 0 = Not at all Becoming easily annoyed or irritable: 0 = Not at all Feeling afraid as if something awful might happen: 0 = Not at all Total DAVID-7 score (0-4 normal; 5-9 mild; 10-14 moderate; 15-21 severe): 0 Source: Developed by Drs. Karlos Camejo, Bette Dejesus, Chas Plummer and colleagues, with an educational jahaira from [employer]. DAVID-7 Assessment Billing DAVID-7 Assessment Tool: DAVID-7 Assessment 26512 Review of Systems Narrative Review of Systems - Constitutional: Reports weight gain. - Integumentary: Reports itching and occasional bleeding of the scalp. - Reports excessive sweating, itching, and skin irritation in an abdominal skin fold. - Respiratory: Reports history of asthma. - Denies shortness of breath, except for a past episode of choking on gastric reflux. - Reports snoring. - Cardiovascular: Reports intermittent palpitations. - Gastrointestinal: Reports feeling of food getting stuck while eating (dysphagia). - Reports chronic constipation. - Reports history of diverticulosis and internal hemorrhoids. - Musculoskeletal: Reports severe right arm pain and weakness. - Reports chronic knee pain. - Reports a cracking sensation in her joints. - Neurological: Reports burning pain from cervical neuropathy. - Psychiatric: Reports history of depression. - Reports insomnia and waking up tired. 10-point ROS reviewed and negative except as noted in HPI Physical exam (Primary Care) Vital Signs: Last Vital Signs Temp 97.9 F 03/05/25 10:03 Pulse 67 03/05/25 10:03 Resp 16 03/05/25 10:03 BP 129/72 03/05/25 10:03 Pulse Ox 97 03/05/25 10:03 Oxygen Delivery Method Room Air 03/05/25 10:03 BMI result Body Mass Index 30.3 Tobacco/Smoking Status: Tobacco use Status Tobacco use date assessed 03/05/25 03/05/25 10:05 Patient Tobacco Use Status Never used Tobacco 03/05/25 10:03 e-Cigarette/Vaping Use Never Used 03/05/25 10:03 PHQ-9: PHQ-9 Score PHQ-9: Total score 0 03/05/25 09:54 Depression Screening Interpretation: Negative Thrive Assessment: Date of Thrive Assessment Date Thrive assessed 03/05/25 03/05/25 09:54 Currently or been in a relationship where the following occur: No concerns reported Narrative Physical Exam General: Well-appearing, in no acute distress. Vital signs: Within normal limits. HEENT: Normocephalic, atraumatic. PERRLA, EOMI. Conjunctiva clear, sclera anicteric. Oropharynx clear, mucous membranes moist. TMs intact bilaterally. Neck: Supple, no lymphadenopathy, no thyromegaly, no JVD or carotid bruits. Cardiovascular: RRR, normal S1/S2, no murmurs, rubs, or gallops. Peripheral pulses 2+ and symmetric. No edema. Respiratory: Lungs clear to auscultation bilaterally, no wheezes, rales, or rhonchi. Normal effort. Abdomen: Soft, non-tender, non-distended. Normoactive bowel sounds. No hepatosplenomegaly, no masses. MSK: Limited range of motion in the arm due to pain, possibly related to arthritis. Full range of motion otherwise, no joint swelling or deformity. Normal gait. Skin: Warm, dry, intact. No rashes, lesions, or pallor. Psoriasis noted on the scalp, with some itching and small blisters. Neuro: Alert and oriented x3. Cranial nerves II-XII intact. Strength 5/5 throughout. Sensation intact. Reflexes 2+ symmetric. Normal coordination and gait. Psych: Appropriate mood and affect. Normal judgment and insight. Reports of depression managed with citalopram, but experiencing weight gain. Considering change in medication to address insomnia and depression. Coding Level of Care Code New Pt Level 4 (42641) Add On Problem Visit Only Diagnoses Class 1 obesity E66.811 Environmental allergies Z91.09 Moderate episode of recurrent major depressive disorder F33.1 Major depression episode severity: moderate Mixed hyperlipidemia E78.2 Hyperlipidemia type: mixed hyperlipidemia Gastroesophageal reflux disease without esophagitis K21.9 Esophagitis presence: without esophagitis Sliding hiatal hernia K44.9 Osteoarthritis of knees, bilateral M17.0 Other chronic pain G89.29 Chronic pain type: other chronic pain Moderate persistent asthma J45.40 Insomnia G47.00 Snoring R06.83 Cervical radiculopathy M54.12 Delayed gastric emptying K30 Chronic seborrheic dermatitis L21.9 Osteopenia M85.80 Intertrigo L30.4 Chronic constipation K59.09 Additional Codes DAVID-7 Assessment Billing - DAVID-7 Assessment Tool: DAVID-7 Assessment 68804 ([id number]) PHQ-9 - 76326 - PHQ-9 Billing: Yes ([id number]) Assessment & Plan Assessment & Plan (1) Class 1 obesity: Code(s): E66.811 - Obesity, class 1 Category: Medical (2) Environmental allergies: Code(s): Z91.09 - Other allergy status, other than to drugs and biological substances Category: Medical (3) MDD (major depressive disorder), recurrent episode: Code(s): F33.9 - Major depressive disorder, recurrent, unspecified Category: Medical Qualifiers: Major depression episode severity: moderate Qualified Code(s): F33.1 - Major depressive disorder, recurrent, moderate (4) HLD (hyperlipidemia): Code(s): E78.5 - Hyperlipidemia, unspecified Category: Medical Qualifiers: Hyperlipidemia type: mixed hyperlipidemia Qualified Code(s): E78.2 - Mixed hyperlipidemia (5) GERD (gastroesophageal reflux disease): Code(s): K21.9 - Gastro-esophageal reflux disease without esophagitis Category: Medical Qualifiers: Esophagitis presence: without esophagitis Qualified Code(s): K21.9 - Gastro-esophageal reflux disease without esophagitis (6) Sliding hiatal hernia: Code(s): K44.9 - Diaphragmatic hernia without obstruction or gangrene Category: Medical (7) Osteoarthritis of knees, bilateral: Code(s): M17.0 - Bilateral primary osteoarthritis of knee Category: Medical (8) Chronic pain: Code(s): G89.29 - Other chronic pain Category: Medical Qualifiers: Chronic pain type: other chronic pain Qualified Code(s): G89.29 - Other chronic pain (9) Moderate persistent asthma: Code(s): J45.40 - Moderate persistent asthma, uncomplicated Category: Medical (10) Insomnia: Code(s): G47.00 - Insomnia, unspecified Category: Medical (11) Snoring: Code(s): R06.83 - Snoring Category: Medical (12) Cervical radiculopathy: Code(s): M54.12 - Radiculopathy, cervical region Category: Medical (13) Delayed gastric emptying: Code(s): K30 - Functional dyspepsia Category: Medical (14) Chronic seborrheic dermatitis: Code(s): L21.9 - Seborrheic dermatitis, unspecified Category: Medical (15) Osteopenia: Code(s): M85.80 - Other specified disorders of bone density and structure, unspecified site Category: Medical (16) Intertrigo: Code(s): L30.4 - Erythema intertrigo Category: Medical (17) Chronic constipation: Code(s): K59.09 - Other constipation Category: Medical Plan Consent The patient provided verbal consent for a blood draw and a home sleep study after a discussion of the rationale for these tests. Patient was informed and verbally consented to the use of an ambient scribe for clinic note documentation during this visit. Plan 1. Comprehensive Health Evaluation - To establish a comprehensive baseline, a full panel of blood work will be ordered. - Lab orders include a complete blood count (CBC), comprehensive metabolic panel (CMP), magnesium, hemoglobin A1c, lipid panel, thyroid panel, vitamin B12, vitamin D, folate, urinalysis, and screenings for hepatitis B, C, HIV, and syphilis. - A follow-up appointment is scheduled in two weeks to review all results and adjust the treatment plan accordingly. 2. Insomnia And Suspected Sleep Apnea - Given reports of insomnia, snoring, and a past episode of choking, an at-home sleep study will be ordered to evaluate for sleep-disordered breathing. 3. Major Depressive Disorder - The patient expressed concern about weight gain associated with citalopram. - A potential change to mirtazapine, which may also aid with sleep, will be considered after reviewing blood work. - The patient was advised to continue her current use of magnesium glycinate and melatonin for sleep. 4. Intertrigo - To manage the rash in her abdominal skin fold, nystatin powder will be prescribed for twice-daily application to keep the area dry and treat potential fungal infection. - The importance of documenting failed conservative treatments was discussed as a necessary step for seeking insurance approval for a potential future surgical panniculectomy. 5. Chronic Constipation - A prescription for docusate will be provided as the patient has run out. 6. Scalp Psoriasis And Dermatitis - Prescriptions for ketoconazole shampoo and triamcinolone cream will be refilled. Discussion Notes I had a detailed discussion with the patient, who is new to me, to understand her multiple chronic health issues. I explained that we would start by ordering a comprehensive set of labs to establish a baseline for her care. We discussed her chronic skin irritation in the abdominal fold, and I will prescribe nystatin powder to manage moisture and prevent fungal infections. I explained the process needed to potentially get surgical intervention covered by insurance in the future, which requires thorough documentation of rashes, infections, and failed conservative treatments. Regarding her insomnia and weight gain with citalopram, I mentioned that we could consider changing her antidepressant to one like mirtazapine, but we will wait for the lab results before making any changes. Due to her reports of snoring and insomnia, I recommended a home sleep study, and she agreed. We scheduled a follow-up appointment in two weeks to review all the results and create a more detailed, long-term management plan. Patient Instructions - Please go to the lab to have your blood drawn today. - We will see you back in the office in two weeks to discuss your lab results. - Apply the prescribed nystatin powder to the skin fold under your stomach twice a day to keep it dry. - We will be ordering a sleep study for you to do at home to check for any breathing problems while you sleep. - We will send prescriptions for your constipation medicine (docusate), scalp shampoo (ketoconazole), and skin cream (triamcinolone) to your pharmacy. - You can continue taking your magnesium and melatonin supplements as they are helping you. - When you are cleaning with strong chemicals, please wear a mask to help prevent an asthma attack. Medical Decision Making The patient is a 64-year-old female new to my practice, presenting with a new complaint of right arm pain in the context of multiple complex, chronic conditions. My immediate goal is to establish a comprehensive understanding of her health status. Therefore, I am ordering a broad panel of labs to get a baseline on her metabolic, hematologic, endocrine, and nutritional status, which will inform management of her multiple comorbidities. The patient's complaint of insomnia, coupled with her 's report of snoring, is suspicious for obstructive sleep apnea, especially given her complaint of a prior episode of choking from reflux at night. An at-home sleep study is a low-risk, appropriate next step to investigate this. Her dissatisfaction with weight gain from escitalopram and concomitant insomnia makes a change in her antidepressant reasonable. Mirtazapine is a good potential alternative, as it may address both her depression and insomnia, but I will await lab results before initiating this change. The chronic, recurrent rash in her pannus is consistent with intertrigo. Initial management will focus on moisture control and antifungal treatment with nystatin powder. I have counseled the patient that for a panniculectomy to be considered medically necessary by her insurance, we must first document the failure of conservative management, which we are initiating now. We will follow up in two weeks to review all diagnostic findings and adjust the therapeutic plan. Total Time Statement 45 min Total time spent caring for the patient today includes pre-visit chart review, documentation, review of laboratory and diagnostic imaging results, medication reconciliation, medically necessary evaluation, counseling on diagnoses, care coordination, ordering appropriate tests and medications, review of tests performed by other providers, reporting test results to the patient, and communication with other healthcare providers. Orders: Orders HIV Ab/Ag Today Z.9 - Encounter for screening, unspecified UA CC w/rflx Micro + Cult Today Z13.9 - Encounter for screening, unspecified Magnesium Today Z13.9 - Encounter for screening, unspecified Hepatitis B Surface Antibody Today Z13.9 - Encounter for screening, unspecified Vitamin D 25-OH (D2 and D3) Today Z13.9 - Encounter for screening, unspecified Complete Blood Count Auto Diff Today Z13.9 - Encounter for screening, unspecified Hepatitis B Surface Antigen Today Z13.9 - Encounter for screening, unspecified Syphilis Screen Today Z13.9 - Encounter for screening, unspecified Comprehensive Met. Panel Today Z13.9 - Encounter for screening, unspecified Hepatitis C Antibody Today Z13.9 - Encounter for screening, unspecified TSH reflex Free T4 Today Z13.9 - Encounter for screening, unspecified Lipid Panel Today Z13.9 - Encounter for screening, unspecified Vitamin B12 and Folate Today Z13.9 - Encounter for screening, unspecified Hemoglobin A1c Today Z13.9 - Encounter for screening, unspecified Erythrocyte Sedimentation Rate Today Z13.9 - Encounter for screening, unspecified CRP High Sensitivity Today Z13.9 - Encounter for screening, unspecified Medications: New nystatin 1 appl topical BID 60 grams 0RF docusate sodium 100 mg PO BID PRN 180 caps 0RF constipation famotidine 40 mg PO BID 180 tabs 0RF triamcinolone acetonide 0.025% 1 appl topical BID 80 grams 0RF Changed From ketoconazole 2% topical To ketoconazole 2% 1 appl topical 3XW 120 mL 0RF
[2025-03-05 10:03] VITALS: BP 129/72; PULSE 67; RESP 16; TEMP 36.6; O2SAT 97; BMI 30.3
== END 2025-03-05 10:42 | disposition home or self-care (01) ==
LOC: HO.HMCFMS 09:48
PROVIDERS: PCP Nurse Practitioner Family; Visit Provider Student in an Organized Health Care Education/Training Program
DX: E66.811 Obesity, class 1 (principal); Z91.09 Other allergy status, other than to drugs and biological substances; F33.1 Major depressive disorder, recurrent, moderate; E78.2 Mixed hyperlipidemia; K21.9 Gastro-esophageal reflux disease without esophagitis; K44.9 Diaphragmatic hernia without obstruction or gangrene; M17.0 Bilateral primary osteoarthritis of knee; G89.29 Other chronic pain; J45.40 Moderate persistent asthma, uncomplicated; G47.00 Insomnia, unspecified; R06.83 Snoring; M54.12 Radiculopathy, cervical region; K30 Functional dyspepsia; L21.9 Seborrheic dermatitis, unspecified; M85.80 Other specified disorders of bone density and structure, unspecified site; L30.4 Erythema intertrigo; K59.09 Other constipation